=== PATIENT | female | born 1940 | race African-American/Black ===

== ENCOUNTER 2017-10-18 13:17 | Emergency (ER) | payer OTHER ==
[~2017-10-18] VITALS: Ht 165.1 cm; Wt 110.0 kg
[~2017-10-18 13:17] MED LIST: CALCIUM CHLORIDE 1GM/10ML SYR IV ONE; EPINEPHRINE 0.1MG/ML (1:10,000) 10ML SYR ONE; LIDOCAINE HCL 2% 5ML SYRINGE IV ONE; MAGNESIUM SULFATE 4G IN WATER 100ML PREMIX IV ONE; SODIUM BICARBONATE 7.5% 0.9 MEQ/ML 50ML SYR IV ONE
[2017-10-18 13:20] VITALS: BP 0/0
[2017-10-18] MEDS ORDERED: EPINEPHRINE 0.1MG/ML (1:10,000) 10ML SYR ONE (13:37)
[2017-10-18] MEDS ORDERED: AMIODARONE HCL 50MG/ML 9ML VIAL IV ONE (13:45)
== END 2017-10-18 13:43 | disposition expired ==
LOC: ER 13:28
DX: I46.9 Cardiac arrest, cause unspecified (principal); V49.88XA Car occupant (driver) (passenger) injured in other specified transport accidents, initial encounter; Y93.89 Activity, other specified; Y92.89 Other specified places as the place of occurrence of the external cause; Y92.410 Unspecified street and highway as the place of occurrence of the external cause; Y99.8 Other external cause status
CPT/HCPCS: 31500; 36556; 82962; 92950; 99291; J0171; J0282; J3475; J3490